=== PATIENT | male | born 1970 | race Caucasian/White ===

== ENCOUNTER 2017-09-10 10:06 | Emergency (ER) | payer OTHER ==
[2017-09-10] MEDS: ADACEL/BOOSTRIX VACCINE (DIPHTH/PERTUSS/ACELL/TETANUS)0.5ML SYR (90715) IM (11:55)
[2017-09-10] MEDS: LIDOCAINE 2% MDV 20 ML VIAL SC (12:25)
== END 2017-09-10 13:39 | disposition home or self-care (01) ==
LOC: M ED 10:06
DX: S61.220A Laceration with foreign body of right index finger without damage to nail, initial encounter (principal); S61.212A Laceration without foreign body of right middle finger without damage to nail, initial encounter; W27.0XXA Contact with workbench tool, initial encounter; Y92.89 Other specified places as the place of occurrence of the external cause; I12.9 Hypertensive chronic kidney disease with stage 1 through stage 4 chronic kidney disease, or unspecified chronic kidney disease; I25.10 Atherosclerotic heart disease of native coronary artery without angina pectoris; I25.2 Old myocardial infarction; F17.210 Nicotine dependence, cigarettes, uncomplicated; Z79.899 Other long term (current) drug therapy; Z79.02 Long term (current) use of antithrombotics/antiplatelets
CPT/HCPCS: J0690

== ENCOUNTER → 2017-10-09 | Outpatient (CLI) | payer OTHER | LOC: M LRY 12:26 | DX: S89.91XA Unspecified injury of right lower leg, initial encounter (principal); X58.XXXA Exposure to other specified factors, initial encounter; Y92.89 Other specified places as the place of occurrence of the external cause; Z98.890 Other specified postprocedural states | CPT/HCPCS: 73590 ==

== ENCOUNTER → 2019-03-25 | Outpatient (CLI) | payer OTHER ==
[~2019-03-25] MED LIST: CLOP75TA2 PO; EZET10TA21 PO; HYDR-3715 PO; KEFL500C17 PO; LISI-1046 PO; LOSA25TA14 PO; METO25TA4 PO; ROSU5TAB5 PO
--- NOTE | 2019-03-25 15:39 | REP ---
Nine views cervical spine: 03/25/2019. Indication: Neck pain. Comparison: New none. Findings: There is no acute fracture, subluxation or dislocation. There is no instability on the dynamic testing. Multilevel degenerative sequelae are present without severe spinal canal or neural foraminal narrowing detected. No erosive osseous lesions are detected. The prevertebral and additional visualized paraspinal soft tissues are unremarkable. Impression: No acute osseous injury of the cervical spine detected. Electronically Signed by Ameya Fraser DO 03/25/2019 03:30 P
== END ==
LOC: M LRY 14:47
PROVIDERS: ATTEND Physician Assistant
DX: M54.2 Cervicalgia (principal)

== ENCOUNTER → 2025-02-24 | Outpatient (CLI) | payer BC ==
[~2025-02-24] MED LIST changes: -EZET10TA21 PO; +EZET10TA57 PO; -LISI-1046 PO; +LISI2.5T9 PO; +LOSA25TA13 PO; -LOSA25TA14 PO; +ROSU5TAB49 PO; -ROSU5TAB5 PO
[2025-02-24 17:51] LABS: BASO # 0.1 10^3/uL (0.0-0.2); BASO % 1.1 % (0.0-1.0); EOS # 0.2 10^3/uL (0.0-0.5); EOS % 2.1 % (0.0-3.0); LYMPH # 1.6 10^3/uL (1.5-5.0); LYMPH % 16.9 % (24.0-44.0); MONO # 0.7 10^3/uL (0.0-0.8); MONO % 7.6 % (2.0-8.0); NEUTROPHILS # 6.8 10^3/uL (1.5-8.5); NEUTROPHILS % 71.9 % (36.0-66.0); PLATELET COUNT, AUTOMATED 285 10^3/uL (150-450)
[2025-02-24 17:55] LABS: ALT/SGPT 23.0 U/L (7.0-40); AST/SGOT 20.0 U/L (<34); CALCIUM LEVEL 8.7 MG/DL (8.5-10.1); CARBON DIOXIDE LEVEL 34.0 MMOL/L (20-31); CHLORIDE LEVEL 104.0 MMOL/L (98-107); CHOLESTEROL LEVEL 234.0 MG/DL (<200); CHOLESTEROL RISK RATIO 3.63 (<5); CREATININE FOR GFR 1.12 MG/DL (0.70-1.30); GLOMERULAR FILTRATION RATE 77.1 (>56); LDL CHOLESTEROL 157.0 MG/DL (<100); NON-HDL-C 169.6 MG/DL; POTASSIUM SERUM 4.9 MMOL/L (3.5-5.1); SODIUM LEVEL 140.0 MMOL/L (136-145); TRIGLYCERIDES LEVEL 63.0 MG/DL (<150)
[2025-02-24 17:56] LABS: FREE T4 1.05 NG/DL (0.89-1.76)
[2025-02-24 18:55] LABS: ESTIMATED AVERAGE GLUCOSE 111.0 MG/DL (60-110)
== END ==
LOC: M WUC 13:20
DX: Z00.8 Encounter for other general examination (principal); I10 Essential (primary) hypertension; E78.5 Hyperlipidemia, unspecified; Z12.5 Encounter for screening for malignant neoplasm of prostate

== ENCOUNTER → 2025-03-31 | Outpatient (CLI) | payer BC | LOC: M RAD 09:31 | DX: Z12.2 Encounter for screening for malignant neoplasm of respiratory organs (principal); F17.210 Nicotine dependence, cigarettes, uncomplicated; J43.9 Emphysema, unspecified; R91.8 Other nonspecific abnormal finding of lung field; I25.10 Atherosclerotic heart disease of native coronary artery without angina pectoris; I70.0 Atherosclerosis of aorta ==